=== PATIENT | male | born 1935 | race African-American/Black ===

== ENCOUNTER 2018-05-15 11:16 | Inpatient (IN) | payer MEDICAID ==
[~2018-05-15] VITALS: Ht 162.6 cm; Wt 61.4 kg
[2018-05-15] MEDS ORDERED: NOREPINEPHRINE 4 MG in DEXT 5% WATER 246 ML IV ONE (11:30)
[2018-05-15] MEDS ORDERED: SODIUM CHLORIDE 0.9% 1000ML BAG (SEPSIS BOLUS) IV ONE (11:30)
[2018-05-15] MEDS ORDERED: NOREPINEPHRINE 4 MG in DEXT 5% WATER 246 ML IV PRN (12:15)
[2018-05-15 12:24] LABS: BASOPHILS % 0.8 % (0.0-2.0); EOSINOPHILS % 0.6 % (0.0-5.0); HEMOGLOBIN. 10.4 g/dL (14.0-18.0); LYMPHOCYTES % 18.2 % (20.0-50.0); MEAN CORPUSCULAR HEMOGLOBIN 27.6 pg (28.0-32.0); MEAN CORPUSCULAR VOLUME 87.7 fL (80.0-94.0); MEAN PLATELET VOLUME 7.7 fl (7.4-10.4); MONOCYTES % 12.6 % (2.0-8.0); NEUTROPHILS % 67.8 % (40.0-76.0); PLATELET 227 x1000/uL (130-400); RED BLOOD CELL COUNT 3.77 mill/uL (4.7-6.1); RED CELL DISTRIBUTION WIDTH 20.3 % (11.6-14.6)
[2018-05-15 12:30] LABS: CHLORIDE 102 mEq/L (98-107)
[2018-05-15 12:33] LABS: INR 1.3; PARTIAL THROMBOPLASTIN TIME 35.9 sec (23.4-31.0); PROTHROMBIN TIME 12.9 sec (9.1-11.1)
[2018-05-15 12:36] LABS: PHOSPHORUS 3.8 mg/dL (2.5-4.9)
[2018-05-15] MEDS ORDERED: IOHEXOL-300 50 ML BOTTLE IV ONE (16:09)
[2018-05-16] VITALS (73 sets, daily range): BP systolic 45–213; BP diastolic 14–132
[2018-05-16] MEDS ORDERED: DEXT 5%/0.9% NACL 250 ML IV ONE ×2 (03:55→04:00)
[2018-05-16] MEDS ORDERED: ALBUMIN HUMAN 25GM/100ML (25%) IV SCH (04:00)
[2018-05-16] MEDS ORDERED: DEXTROSE 50% WATER 50ML SYRINGE IV SCH (04:00)
[2018-05-16] MEDS ORDERED: DEXTROSE 50% WATER 50ML SYRINGE IV PRN (04:30)
[2018-05-16] MEDS: DEXT 5%/0.9% NACL 1,000 ML IV SCH (05:34)
[2018-05-16] MEDS: NOREPINEPHRINE 8 MG in DEXT 5% WATER 242 ML IV PRN ×3 (06:52→22:31)
[2018-05-16] MEDS ORDERED: DIPHENHYDRAMINE 50MG/ML VIAL IV PRN (07:45)
[2018-05-16] MEDS ORDERED: IPRATROPIUM/ALBUTEROL 0.5-3(2.5)MG/3ML NEB INH PRN (07:45)
[2018-05-16] MEDS ORDERED: ACETAMINOPHEN 650MG SUPP PR PRN (07:45)
[2018-05-16] MEDS ORDERED: CLONIDINE 0.1MG TABLET PO PRN (07:45)
[2018-05-16] MEDS ORDERED: MAGNESIUM/ALUMINUM HYDROXIDE/SIMETHICONE 30ML UDC PO PRN (07:45)
[2018-05-16] MEDS ORDERED: ACETAMINOPHEN 325MG TABLET PO PRN (07:45)
[2018-05-16] MEDS ORDERED: ACETAMINOPHEN 650MG/20.3ML UDC GT PRN (07:45)
[2018-05-16] MEDS ORDERED: ONDANSETRON HCL 4MG/2ML VIAL IV PRN (07:45)
[2018-05-16] MEDS: BLOOD SUGAR DIAGNOSTIC STRIP TEST SCH ×5 (08:00→23:39)
[2018-05-16] MEDS ORDERED: NOREPINEPHRINE 8 MG in DEXT 5% WATER 242 ML IV PRN (08:00)
[2018-05-16] MEDS: INSULIN LISPRO 100 UNITS/ML SUBCUT SCH ×5 (08:20→23:40)
[2018-05-16] MEDS ORDERED: PIPERACILLIN/TAZ 3.375G PREMIX 50 ML IV NR (08:30)
[2018-05-16 08:50] LABS: BG BASE EXCESS 0.3 mmol/L (-2.0-2.0); BG CARBOXYHEMOGLOBIN 0.8 % (0.5-1.5); BG DEOXYHEMOGLOBIN 2.1 % (0.0-5.0); BG FRACTION INSPIRED OXYGEN 28; BG HCO3 ACT 24.8 mmol/L (22.0-26.0); BG METHEMOGLOBIN 0.3 % (0.0-1.5); BG OXYGEN SATURATION 97.9 % (92.0-98.5); BG OXYHEMOGLOBIN 96.8 % (94.0-97.0); BG PCO2 39.5 mmHg (35.0-45.0); BG PH 7.416 (7.350-7.450); BG PO2 113.1 mmHg (75.0-100.0); BG SAMPLE SITE RIGHT BRACHIAL; BG TOTAL HEMOGLOBIN 11.2 g/dL (12.0-18.0); BG VENT MODE NASAL CANNULA
[2018-05-16] MEDS ORDERED: VANCOMYCIN 1500MG in DEXTROSE 5% WATER 250ML IV NR (09:30)
[2018-05-16 09:33] LABS: EOSINOPHILS % 0.6 % (0.0-5.0); HEMOGLOBIN. 11.1 g/dL (14.0-18.0); LYMPHOCYTES % 14.8 % (20.0-50.0); MEAN CORPUSCULAR HEMOGLOBIN 27.9 pg (28.0-32.0); MEAN CORPUSCULAR VOLUME 88.1 fL (80.0-94.0); MEAN PLATELET VOLUME 7.8 fl (7.4-10.4); MONOCYTES % 10.6 % (2.0-8.0); PLATELET 250 x1000/uL (130-400); RED BLOOD CELL COUNT 3.98 mill/uL (4.7-6.1); RED CELL DISTRIBUTION WIDTH 20.2 % (11.6-14.6)
[2018-05-16 10:07] LABS: CHLORIDE 103 mEq/L (98-107)
[2018-05-16 10:14] LABS: LDL CHOLESTEROL 90 mg/dL (5-100)
[2018-05-16 10:15] LABS: HDL CHOLESTEROL 24 mg/dL (40-59)
[2018-05-16 10:53] LABS: T4 FREE 1.58 ng/dL (0.76-1.46)
[2018-05-16] MEDS: CEFTRIAXONE 1 G PREMIX 50 ML IV SCH (10:53)
[2018-05-16] MEDS ORDERED: VASOPRESSIN 10 UNIT in SODIUM CHLORIDE 0.9% 99.5 ML IV PRN (11:15)
[2018-05-16] MEDS: SODIUM CHLORIDE 0.9% INJ 3ML FLUSH IVF SCH ×2 (14:00→21:29)
[2018-05-16 16:55] LABS: CREATINE KINASE MB FRACTION 1.9 ng/mL (0.5-3.6)
[2018-05-16] MEDS: PIPERACILLIN/TAZ 2.25G PREMIX 50 ML IV SCH (17:27)
[2018-05-17] VITALS (71 sets, daily range): BP systolic 58–170; BP diastolic 13–132
[2018-05-17 01:03] LABS: CREATINE KINASE MB FRACTION 1.6 ng/mL (0.5-3.6)
[2018-05-17] MEDS: PIPERACILLIN/TAZ 2.25G PREMIX 50 ML IV SCH ×3 (02:00→17:17)
[2018-05-17] MEDS: INSULIN LISPRO 100 UNITS/ML SUBCUT SCH ×4 (04:00→17:16)
[2018-05-17] MEDS: BLOOD SUGAR DIAGNOSTIC STRIP TEST SCH ×4 (04:17→16:53)
[2018-05-17 04:43] LABS: HEMATOCRIT. 37.8 % (42.0-52.0); HEMOGLOBIN. 11.6 g/dL (14.0-18.0); MEAN CORPUSCULAR HEMOGLOBIN 27.6 pg (28.0-32.0); MEAN CORPUSCULAR VOLUME 89.6 fL (80.0-94.0); MEAN PLATELET VOLUME 7.7 fl (7.4-10.4); PLATELET 245 x1000/uL (130-400); RED BLOOD CELL COUNT 4.22 mill/uL (4.7-6.1); RED CELL DISTRIBUTION WIDTH 20.2 % (11.6-14.6)
[2018-05-17] MEDS: SODIUM CHLORIDE 0.9% INJ 3ML FLUSH IVF SCH ×2 (05:04→14:34)
[2018-05-17] MEDS: DEXT 5%/0.9% NACL 1,000 ML IV SCH (05:05)
[2018-05-17 05:18] LABS: CHLORIDE 106 mEq/L (98-107)
[2018-05-17 05:30] LABS: HDL CHOLESTEROL 27 mg/dL (40-59); PHOSPHORUS 4.1 mg/dL (2.5-4.9)
[2018-05-17 05:31] LABS: LDL CHOLESTEROL 96 mg/dL (5-100)
[2018-05-17] MEDS: CEFTRIAXONE 1 G PREMIX 50 ML IV SCH (06:47)
[2018-05-17] MEDS: NOREPINEPHRINE 8 MG in DEXT 5% WATER 242 ML IV PRN ×2 (06:50→17:10)
[2018-05-17 10:11] LABS: PLATELET ESTIMATE NORMAL
[2018-05-17] MEDS ORDERED: CLOP75TA16 MT (11:24)
[2018-05-17] MEDS ORDERED: MIDO5TAB MT (11:24)
[2018-05-17] MEDS ORDERED: CARV3.1242 MT (11:24)
[2018-05-17] MEDS ORDERED: ASPI-1158 MT (11:24)
[2018-05-17] MEDS ORDERED: OMEP20CA10 MT (11:24)
[2018-05-17] MEDS ORDERED: RISP0.5T19 MT (11:24)
[2018-05-17] MEDS ORDERED: MEX150 MT (11:24)
[2018-05-17] MEDS ORDERED: AMIO100T4 PO (11:24)
== END 2018-05-17 19:00 | disposition short-term general hospital (02) | DRG 720 ==
LOC: ER 11:16 → EDBEDREQ 11:29 → 6WST 12:52 → EDBEDREQSVC 12:55 → EDBEDREQTM 12:55 → EDBEDREQ 12:55 → ENRESERV 18:59 → CVICU 05-16 06:45
PROVIDERS: ADMIT Family Medicine; ATTEND Family Medicine
PROC: 5A1D70Z Performance of Urinary Filtration, Intermittent, Less than 6 Hours Per Day (ICD-10-PCS; principal; 2018-05-16)
DX: A41.9 Sepsis, unspecified organism (principal); R65.21 Severe sepsis with septic shock; E43 Unspecified severe protein-calorie malnutrition; I13.2 Hypertensive heart and chronic kidney disease with heart failure and with stage 5 chronic kidney disease, or end stage renal disease; G93.40 Encephalopathy, unspecified; E87.2 Acidosis; N18.6 End stage renal disease; I48.2 Chronic atrial fibrillation; I42.9 Cardiomyopathy, unspecified; E11.22 Type 2 diabetes mellitus with diabetic chronic kidney disease; E11.42 Type 2 diabetes mellitus with diabetic polyneuropathy; I50.32 Chronic diastolic (congestive) heart failure; E11.51 Type 2 diabetes mellitus with diabetic peripheral angiopathy without gangrene; E11.649 Type 2 diabetes mellitus with hypoglycemia without coma; E78.5 Hyperlipidemia, unspecified; E11.621 Type 2 diabetes mellitus with foot ulcer; L97.519 Non-pressure chronic ulcer of other part of right foot with unspecified severity; K00.7 Teething syndrome; I25.10 Atherosclerotic heart disease of native coronary artery without angina pectoris; D63.1 Anemia in chronic kidney disease; E11.65 Type 2 diabetes mellitus with hyperglycemia; M86.671 Other chronic osteomyelitis, right ankle and foot; E11.69 Type 2 diabetes mellitus with other specified complication; Z51.5 Encounter for palliative care; I35.0 Nonrheumatic aortic (valve) stenosis; Z79.899 Other long term (current) drug therapy; Z89.431 Acquired absence of right foot; Z95.1 Presence of aortocoronary bypass graft; I25.2 Old myocardial infarction; Z95.5 Presence of coronary angioplasty implant and graft; Z95.810 Presence of automatic (implantable) cardiac defibrillator; Z87.891 Personal history of nicotine dependence; Z99.2 Dependence on renal dialysis; Z87.828 Personal history of other (healed) physical injury and trauma; Z88.2 Allergy status to sulfonamides; Z89.021 Acquired absence of right finger(s); Z89.422 Acquired absence of other left toe(s); Z91.11 Patient's noncompliance with dietary regimen; Z68.23 Body mass index [BMI] 23.0-23.9, adult
CPT/HCPCS: 36415; 36600; 70450; 71045; 80053; 80061; 80202; 82375; 82550; 82553; 82805; 82962; 83036; 83605; 83690; 83735; 83880; 84100; 84145; 84439; 84443; 84484; 85025; 85379; 85610; 85730; 87040; 93005; 93306; 93970; 96360; 99291; A6261; J0696; J1815; J2543; J3370; J3490; J7030; J7040; J7042; J7050; J7060; P9047; Q9967